=== PATIENT | female | born 1960 | race Caucasian/White ===

== ENCOUNTER 2024-10-20 19:59 | Emergency (ER) | payer MEDICARE ==
[~2024-10-20] VITALS: Ht 177.8 cm; Wt 115.7 kg
[~2024-10-20 19:59] MED LIST: ESOM20; ESTR2; HYDACE5; OXYACE5T PO
[2024-10-20] MEDS ORDERED: GABA300 PO (23:15)
[2024-10-20] MEDS ORDERED: PANT40 PO (23:15)
[2024-10-20] MEDS ORDERED: MOUNJARO7.5 MG/0.5 SC (23:15)
[2024-10-20] MEDS ORDERED: ZOLP10 PO (23:16)
[2024-10-20] MEDS ORDERED: PARO20 PO (23:16)
[2024-10-20] MEDS ORDERED: Norco 7.5-3251 EACH PO (23:16)
[2024-10-20] MEDS ORDERED: LIDO700A20 TOP (23:17)
== END 2024-10-20 23:31 | disposition home or self-care (01) ==
LOC: ER 19:59
DX: S91.331A Puncture wound without foreign body, right foot, initial encounter (principal); K21.9 Gastro-esophageal reflux disease without esophagitis; Z23 Encounter for immunization; Z88.5 Allergy status to narcotic agent; Z88.8 Allergy status to other drugs, medicaments and biological substances; Z79.899 Other long term (current) drug therapy; W25.XXXA Contact with sharp glass, initial encounter
CPT/HCPCS: 73620; 90471; 90715; 99283-25